=== PATIENT | male | born 1975 | race African-American/Black ===

== ENCOUNTER 2018-08-18 21:25 | Emergency (ER) | payer BC, OTHER ==
[2018-08-18] MEDS ORDERED: Benzonatate 100 MG CAP ONE (21:45)
== END 2018-08-18 21:50 | disposition home or self-care (01) ==
LOC: NAV ERS 21:25
DX: J06.9 Acute upper respiratory infection, unspecified (principal); E66.9 Obesity, unspecified
CPT/HCPCS: 99283

== ENCOUNTER 2019-03-08 09:38 | Outpatient (CLI) | payer BC ==
--- NOTE | 2019-03-08 11:58 | RAD ---
RIGHT KNEE 4 VIEW SERIES: INDICATION: Right knee pain. FINDINGS: There is mild joint capsular distention. No fracture or dislocation. There is mild osteophytosis pr eferentially involving the medial compartment. IMPRESSION: 1. No acute fracture. 2. Mild joint capsular distention. 3. Mild osteophytosis. POS: [facility]
== END 2019-03-08 09:39 | disposition home or self-care (01) ==
LOC: NAV RAD 09:38
PROVIDERS: ATTEND Nurse Practitioner Adult Health
DX: M25.561 Pain in right knee (principal); M25.861 Other specified joint disorders, right knee; M25.761 Osteophyte, right knee

== ENCOUNTER 2021-07-28 16:03 | Emergency (ER) | payer BC | END 2021-07-28 17:25 | disposition home or self-care (01) | LOC: NAV ERS 16:03 | DX: J06.9 Acute upper respiratory infection, unspecified (principal); E66.9 Obesity, unspecified ==